=== PATIENT | male | born 1975 | race Caucasian/White ===

== ENCOUNTER 2018-05-23 13:49 | Emergency (ER) | payer MEDICAID ==
[~2018-05-23] VITALS: Wt 71.5 kg
[2018-05-23 16:26] VITALS: BP 133/82; PULSE 99; RESP 19
[2018-05-23] MEDS ORDERED: ACETAMINOPHEN 325 MG TAB PO ONE (17:00)
[2018-05-23] MEDS ORDERED: IBUPROFEN 600 MG TAB PO ONE (17:00)
[2018-05-23] MEDS ORDERED: IBUP-1542 PO (17:28)
[2018-05-23] MEDS ORDERED: OSEL75CA23 PO (17:28)
[2018-05-23] MEDS ORDERED: D-ME473S2 PO (17:28)
--- NOTE | 2018-05-23 17:31 | ERD ---
ER Documentation Chief Complaint Chief Complaint BIB SELF, CC; FEVER X 5 DAYS HPI 43-year-old male presents with cough and fever for last 5 days. He has no chest pain, vomiting, abdominal pain, urinary complaints. ROS All systems reviewed and are negative except as per history of present illness. Medications Home Meds Active Scripts Oseltamivir Phosphate* (Tamiflu*) 75 Mg Capsule, 75 MG PO BID for 5 Days, CAP Prov:MARIA GUADALUPE DICKEY MD 05/23/18 Dextromethorphan Hb-Promethazine Hcl* (Promethazine DM* Syrup) 473 Ml Syrup, 5 ML PO Q6 PRN for COUGH for 5 Days, ML Prov:MARIA GUADALUPE DICKEY MD 05/23/18 Ibuprofen* (Motrin*) 600 Mg Tab, 600 MG PO Q6, #15 TAB Prov:MARIA GUADALUPE DICKEY MD 05/23/18 Allergies Allergies: Coded Allergies: No Known Allergy (Unverified , 05/23/18) PMhx/Soc Medical and Surgical Hx: pt denies Medical Hx, pt denies Surgical Hx Hx Alcohol Use: No Hx Substance Use: No Hx Tobacco Use: No Smoking Status: Never smoker FmHx Family History: No diabetes, No coronary disease, No other Physical Exam Vitals Vital Signs Date Temp Pulse Resp B/P (MAP) Pulse Ox O2 O2 Flow FiO2 Time Delivery Rate 05/23/18 101.7 99 19 133/82 100 16:26 (99) Physical Exam Const: No acute distress Head: Atraumatic Eyes: Normal Conjunctiva ENT: Normal External Ears, Nose and Mouth. TMs and oropharynx normal. Neck: Full range of motion. No meningismus. Resp: Clear to auscultation bilaterally. Dry cough without rales, wheezing or retractions. Cardio: Regular rate and rhythm, no murmurs Abd: Soft, non tender, non distended. Normal bowel sounds Skin: No petechiae or rashes Back: No midline or flank tenderness Ext: No cyanosis, or edema Neur: Awake and alert Psych: Normal Mood and Affect Results 24 hrs Current Medications Medications Dose Sig/Mel Start Time Status Last (Trade) Ordered Route PRN Stop Time Admin Dose Reason Admin 650 mg ONCE ONCE 05/23/18 DC 05/23/18 Acetaminophen PO 17:00 05/23/18 16:48 (Tylenol 17:01 Tab) Ibuprofen 600 mg ONCE ONCE 05/23/18 DC 05/23/18 (Motrin) PO 17:00 05/23/18 16:48 17:01 Procedures/MDM Chest X-ray 1V Interpreted by me: Soft Tissue: No acute abnormalities Bones: No acute abnormalities Mediastinum/Cardiac Silhouette/Lungs: No acute abnormalities. Impression- normal 1 view chest x-ray Patient presents with fever and URI symptoms for last 5 days. Is no signs of pneumonia, hypoxemia, rest or distress, abdominal pain or chest pain or ill appearance. Likely has acute viral URI or influenza. We will treat empirically with Tamiflu, fever control, promethazine DM, primary care follow-up and return precautions. The patient was stable with no new complaints during the ER course. Clinically, there is no current evidence to suggest meningitis, sepsis, acute abdomen, pneumonia, stroke, acute coronary syndrome, pulmonary embolism, aortic dissection or any other emergent condition appearing to require further evaluation or hospitalization. Patient counseled regarding my diagnostic impression and care plan. Prior to discharge all questions answered. Pt agrees with treatment plan and understands strict return precautions. Pt is instructed to follow up with primary care provider within 24-48 hours. Precautionary instructions provided including instructions to return to the ER if not improving or for any worsening or changing symptoms or concerns. Departure Diagnosis: Primary Impression: URI (upper respiratory infection) URI type: unspecified URI Qualified Codes: J06.9 - Acute upper respiratory infection, unspecified Additional Impression: Fever Fever type: unspecified Qualified Codes: R50.9 - Fever, unspecified Condition: Stable Patient Instructions: Fever Control (Adult), Uri, Viral, No Abx (Adult) Additional Instructions: X-ray normal. Probablamente un virus que dura 2-4 nicholson. cheque otro vez en el proximo bridger para mas simptomas- vomito, dolor, sandy, problemas con respirando, o con [place] doctor primario. MARIA GUADALUPE DICKEY MD May 23, 2018 17:31
== END 2018-05-23 17:45 | disposition home or self-care (01) ==
LOC: FTE 13:49
DX: J06.9 Acute upper respiratory infection, unspecified (principal)
CPT/HCPCS: 71045; Z7502; Z7610